=== PATIENT | female | born 1970 ===

== ENCOUNTER 2017-01-12 20:17 | Emergency (ER) | payer MEDICARE, OTHER ==
--- NOTE | 2017-01-12 20:31 | ED Physician Documentation ---
Ear Complaints - HISTORIAN Historian: patient - HPI Chief Complaint: Earache Timing: still present Location of Pain: R ear Severity: moderate Associated Symptoms: sharp pain, aching, jaw pain. denies: fever, chills, hearing loss, ringing, sore throat Further Comments: yes (Patient was swimming in [place] today. no problem with pain until after eating a tough steak, pain with movement of jaw.) - ROS CONST: no problems CVS/RESP: denies: chest pain All Systems -: Yes - PAST HX Past History: other (tachycardia, hypertension). denies: ear tubes, frequent ear infections Allergies/Adverse Reactions: Allergies Allergy/AdvReac Type Severity Reaction Status Date / Time codeine AdvReac Nausea/Vomi Unverified 01/12/17 20:29 ting iron AdvReac Headache Verified 01/12/17 20:29 Home Medications: Ambulatory Orders Medication Instructions Recorded Tramadol HCl [Ultram] 50 mg PO Q6 PRN #10 tablet 01/12/17 - SOCIAL HX Smoking History: non-smoker Alcohol Use: none Drug Use: none - FAMILY HX Family History: No - REVIEWED ASSESSMENTS Nursing Assessment Reviewed: Yes Vitals Reviewed: Yes Progress - Results/Orders Results/Orders: 21:05 Doing much better at this time. Ear Complaint Physical Exam - EXAM General Appearance: alert, moderate distress, anxious Ear: auricle nml, ice cream man.canal nml, pain w movement of auricl (mild), right, TM' s nml. No: erythema, mastoid tenderness, swelling of canal, material in canal, cerumen, discharge, foreign body Mouth/Throat: lips nml, gums nml, pharynx nml. No: dental caries, dental tenderness Nose: nml inspection Head/Neck: atraumatic, neck nml inspection, facial swelling, other (tenderness over TMJ, pain with palpation of R TMJ, pain with clenching teeth and lateral moverment of mandible). No: cervical lymphadenopathy Resp/CVS: chest non-tender, breath sounds nml, heart sounds nml, no resp. distress, lungs clear Skin: nml color, no skin rash. No: skin rash Neuro/Psych: oriented x3, mood/affect nml Discharge Clincal Impression: TMJ capsulitis Prescriptions: Tramadol HCl [Ultram] 50 mg PO Q6 PRN #10 tablet PRN Reason: Pain Referrals: Primary Doctor,No [Primary Care Provider] - 2 Days Additional Instructions: Avoid any unnecessary movement of the jaw. Avoid chewing if possible. Start taking some Aleve 2tablets with food twice a day. Supplement pain with tramadol , this may cause some drowsiness. Home Medications: Ambulatory Orders Tramadol HCl [Ultram] 50 mg PO Q6 PRN #10 tablet 01/12/17 Condition: Stable Disposition: 01 HOME, SELF-CARE Decision to Admit: NO Date of Decison to Admit: 01/12/17 Decision Time: 21:05
[2017-01-12 20:37] VITALS: BP 115/80
[2017-01-12] MEDS: KETOROLAC TROMETHAMINE 60 MG/2 ML VIAL IM ONE (20:58)
== END 2017-01-12 21:30 | disposition home or self-care (01) ==
LOC: ED 20:17
DX: M26.69 Other specified disorders of temporomandibular joint (principal)
CPT/HCPCS: 96372; 99283; J1885